=== PATIENT | female | born 1960 | race Caucasian/White ===

== ENCOUNTER 2023-06-07 09:33 | Emergency (ER) | payer OTHER, SELFPAY ==
[2023-06-07 09:42] VITALS: BP 159/89
--- NOTE | 2023-06-07 09:48 | ED.SKININJ ---
HPI-Injury
<Mickie Shaw PA-C - Last Filed: 06/07/23 10:35>
General
Chief Complaint: Bite
Source: patient
Exam Limitations: none
Time Seen by Provider: 06/07/23 09:46
Nursing documentation reviewed up to this point in time: agreed with
Travel History
Have you had any contact with someone who has COVID-19?: No
Do you have any symptoms of coronavirus? Fever > 100 degrees, chills, cough, shortness of breath, sore throat, loss of taste or smell, muscle aches, or headache?: No
History of Present Illness-Injury
Is this injury a work related problem?: No
Is pt an associate of [facility]?: No
Initial Injury comments:
63-year-old female with past medical history of diabetes, asthma presenting to the emergency department today for concerns of a dog bite to her face occurred approximately 3 minutes ago. Patient states that she has a rescue border collie who is
up-to-date on his vaccinations. Patient states that she was bending down to pet before calling when he jumped up and bit her on the side of her cheek. Patient notes burning at the site, however denies any facial pain and jaw pain. Patient has a
severe allergy to penicillins. Patient is up-to-date on her tetanus vaccination.
Past History
<Mickie Shaw PA-C - Last Filed: 06/07/23 10:35>
Past History
ED Past Medical History: Asthma, NIDDM (Insulin resistance ), Psychiatric (ADHD, anxiety ) and Other (Seasonal allergies )
ED Past Surgical History: Appendectomy, Orthopedic (Bilateral knee surgeries ) and Other (Umbilical hernia repair )
Social History
Tobacco: Non-smoker
Alcohol: None
Living: with family
Employment: Employed
Review of Systems
<Mickie Shaw PA-C - Last Filed: 06/07/23 10:35>
Review of Systems
All Other Systems: ROS reviewed and negative except as documented in HPI and ROS
Phy Exam
<Mickie Shaw PA-C - Last Filed: 06/07/23 10:35>
Physical Exam
Physical Exam:
Vitals: Vital signs are stable
General: Patient is well-appearing, no acute distress
Skin: 3 cm jagged abrasion with adjacent puncture wound on the right cheek. Wound is not actively bleeding.
Head: Normocephalic. No tenderness palpation of zygomatic bones, no tenderness palpation of temporal bones. No tenderness palpation of the maxilla and mandible. No obvious bony deformities. Full range of motion of the TMJ joint.
Cardiac: Regular rate
Pulm: Normal respiratory effort
Neuro: Patient awake and alert, moving all extremities, CN II-XII intact.
Course
<Mickie Shaw PA-C - Last Filed: 06/07/23 10:35>
Vital Signs
Initial and Last Documented VS:
Initial Vital Signs
Temp Pulse Resp BP Pulse Ox
98.1 F 103 20 159/89 98
06/07/23 09:42 06/07/23 09:42 06/07/23 09:42 06/07/23 09:42 06/07/23 09:42
Last Documented Vital Signs
Temp Pulse Resp BP Pulse Ox
98.1 F 103 20 159/89 98
06/07/23 09:42 06/07/23 09:42 06/07/23 09:42 06/07/23 09:42 06/07/23 09:42
<Maximilian Staples DO - Last Filed: 06/07/23 10:30>
Vital Signs
Initial and Last Documented VS:
Initial Vital Signs
Temp Pulse Resp BP Pulse Ox
98.1 F 103 20 159/89 98
06/07/23 09:42 06/07/23 09:42 06/07/23 09:42 06/07/23 09:42 06/07/23 09:42
Last Documented Vital Signs
Temp Pulse Resp BP Pulse Ox
98.1 F 103 20 159/89 98
06/07/23 09:42 06/07/23 09:42 06/07/23 09:42 06/07/23 09:42 06/07/23 09:42
<Mickie Shaw PA-C - Last Filed: 06/07/23 10:35>
MDM/Problems Addressed
Differential Diagnosis Includes:
laceration, abrasion, zygomatic fracture, maxillary fracture
MDM/Problems Addressed:
dog bite
severe PCN allergy
Chronic conditions affecting care: DM and Asthma
Acute Exacerbation and/or Progression of Chronic Illness: HTN and Other
<ROBSON Hirsch Last Filed: 06/07/23 10:35>
*Pulse Oximetry
Patient hypoxic: no
*Critical Care Note
Total Time (30-74mins, 75-104mins- exclusive of procedures): Not Applicable
Data Reviewed
Review of Other/Old Records Reveals: Records (reviewed ER physician documentation from 11/01/20) and Discharge Summary (reviewed discharge summary from 11/06/20)
Source: patient and records
Prescriptions/Medications Considered But Not Given:
considered medication for pain control but patient comfortable at this time
Further Testing Considered But Not Given:
considered ct of the facial bones but patient has no bony tenderness, no deformities
<ROBSON Hirsch Last Filed: 06/07/23 10:35>
Patient Management
Escalation/DeEscalation of care consider admission/obs:
63-year-old female with past medical history of diabetes, asthma presenting to the emergency department today for concerns of a dog bite to her face occurred approximately 3 minutes ago. Her dog is up to date on his vaccinations and she is up to
date on her tetanus vaccination. On exam, she has no facial bone tenderness and no obvious deformities. Sensation intact. Jagged 3 cm superficial abrasion noted to the right cheek with adjacent puncture wound. Patient has a severe penicillin allergy
so patient will be started on doxy and Flagyl prophylactically. Return precautions given.
ED Attending Note
<Mickie Shaw PA-C - Last Filed: 06/07/23 10:35>
-
Portions of this chart may have been created with voice recognition software.� Occasional wrong word or��sound alike� substitutions may have occurred due to the inherent limitations of voice recognition software.
<Maximilian Staples DO - Last Filed: 06/07/23 10:30>
ED Attending Note
Patient seen and examined by attending physician: Yes
I performed the substantive portion of visit, reviewed & personally made and approve the management plan that is documented in note by myself or TITI.: Yes
ED Attending Note:
I have seen and evaluated the patient with a [id number] encounter. I have spoken to the advance practicer provider and involved in the medical history, the physical exam, medical decision making.
Evaluation and management service: agree unless noted differently below.
Results interpretation: agree unless noted differently below.
Focused HPI: 63-year-old female presenting with a dog bite to her right cheek
Physical exam: Abrasions and exposed skin to right cheek
Medical Decision Making: Given her anaphylaxis to penicillin, will place on doxycycline and Flagyl.
Discharge Plan
Departure
Patient Disposition: Home (Routine Discharge)
Date of Disposition: 06/07/23
Time of Disposition: 10:28
Patient with high blood pressure during this ER visit?: Yes
Condition: Good
Discharge Problem:
Dog bite
Instructions: Animal Bites (DC), Wound Care (DC), BLOOD PRESSURE
Prescriptions:
New
doxycycline hyclate 100 mg tablet
100 mg PO BID 5 Days Qty: 10 0RF
metronidazole 500 mg tablet
500 mg PO TID 5 Days Qty: 15 0RF
No Action
cetirizine 10 MG tablet
10 mg PO DAILY
tizanidine 4 MG tablet
4 mg PO HS
azelastine 1 SPRAY aerosol,spray
1 spray intranasal DAILY
pregabalin 50 MG capsule
50 mg PO HS
acetaminophen 325 MG tablet
650 mg PO Q4HWA 0RF
ipratropium-albuterol 3 ML solution for nebulization
3 ml inhalation R QID Qty: 1 0RF
benzonatate 100 MG capsule
200 mg PO TID PRN (Reason: cough) Qty: 30 0RF
calcium carbonate [Antacid (calcium carbonate)] 1 TABLET tablet,chewable
2 tab PO Q4HPRN PRN (Reason: indigestion) 0RF
docusate sodium 100 MG capsule
100 mg PO BID 0RF
budesonide 0.5 MG/2 ML suspension for nebulization
0.5 mg inhalation R BID Qty: 1 0RF
fluticasone propionate 1 SPRAY spray,suspension
0 spray intranasal BID 0RF
sodium chloride [Saline Nasal] 50 SPRAYS/45 ML aerosol,spray
2 sprays intranasal QIDPRN PRN (Reason: nasal congestion) 0RF
prednisone 10 MG tablet
10 mg PO .TAPER Qty: 30 0RF
Rx Instructions:
Take 40mg daily x3days, 30mg daily x3days,
20mg daily x3days, 10mg daily x3days.
albuterol sulfate [Albuterol Sulfate HFA] 18 GM HFA aerosol inhaler
8.5 gm inhalation Q4HPRN PRN (Reason: shortness of breath) Qty: 1 0RF
Rx Instructions:
carry when traveling
azithromycin 250 MG tablet
250 mg PO DAILY Qty: 10 0RF
Referrals:
Keith Lincoln MD [Family Provider] -
Activity Restrictions/Additional Instructions:
As discussed:
- Doxycycline: please take one tablet twice daily for 5 days
- Metronidazole: please take one tablet three times daily for 5 days
Please return to the emergency department should you experience fevers or chills, purulent drainage from the wound, surrounding warmth or redness to the wound, or other concerning signs or symptoms.
Please follow up with your primary care provider.
Discharge Date and Time
Print Language: MOZAMBICAN
== END 2023-06-07 10:59 | disposition home or self-care (01) ==
LOC: EMR 09:33
PROVIDERS: EMERGENCY PHYSICIAN Student in an Organized Health Care Education/Training Program; FAMILY PHYSICIAN Family Medicine
DX: S00.81XA Abrasion of other part of head, initial encounter (principal); W54.0XXA Bitten by dog, initial encounter; E11.9 Type 2 diabetes mellitus without complications; J45.909 Unspecified asthma, uncomplicated; Z90.49 Acquired absence of other specified parts of digestive tract
CPT/HCPCS: 99282

== ENCOUNTER 2023-07-25 08:54 | Inpatient (IN) | payer OTHER, SELFPAY ==
[2023-07-23] VITALS (7 sets, daily range): BP systolic 116–136; BP diastolic 62–93; BMI 33.3; BMI 31.9
--- NOTE | 2023-07-23 09:47 | ED.GENMED ---
History of Present Illness
<Mickie Shaw PA-C - Last Filed: 07/23/23 14:39>
General
Chief Complaint: Breathing Problem
Source: patient
Exam Limitations: none
Time Seen by Provider: 07/23/23 09:42
Nursing documentation reviewed up to this point in time: agreed with
Travel History
Have you had any contact with someone who has COVID-19?: No
Do you have any symptoms of coronavirus? Fever > 100 degrees, chills, cough, shortness of breath, sore throat, loss of taste or smell, muscle aches, or headache?: No
History of Present Illness
History of Present Illness:
63-year-old female with past medical history of diabetes presenting emergency department today with cough and shortness of breath for the past 5 days. Patient states that she started to have symptoms of upper respiratory infection states that this
is a common trigger of her asthma. Patient states that she takes the Singulair inhaler daily and uses an albuterol inhaler as needed. Patient states that she has been using her albuterol inhaler multiple times this week as well as DuoNeb
treatments which have not helped her symptoms. Patient saw her primary care provider a few days ago who started her on oral prednisone, azithromycin which has not improved her symptoms. Patient denies any tongue or lip swelling, and any exposure
to allergens, any chest pain, any fevers. Patient denies any pain or swelling in her legs. Patient denies any syncopal episodes.
Past History
<Mickie Shaw PA-C - Last Filed: 07/23/23 14:39>
Past History
ED Past Medical History: Asthma, NIDDM (Insulin resistance ), Psychiatric (ADHD, anxiety ) and Other (Seasonal allergies )
ED Past Surgical History: Appendectomy, Orthopedic (Bilateral knee surgeries ) and Other (Umbilical hernia repair )
Social History
Tobacco: Non-smoker
Alcohol: None
Living: with family
Employment: Employed
Review of Systems
<Mickie Shaw PA-C - Last Filed: 07/23/23 14:39>
Review of Systems
All Other Systems: ROS reviewed and negative except as documented in HPI and ROS
Phy Exam
<ROBSON Hirsch Last Filed: 07/23/23 14:39>
Physical Exam
Physical Exam:
General: Patient is well appearing and in no acute distress; non-toxic
Skin: Warm and dry, no rashes or lesions
Head: Normocephalic, atraumatic
Eyes: Sclera non-icteric. EOMs intact.
Mouth: No intra oral lesions, dentition intact, no pharyngeal erythema
Neck: No cervical lymphadenopathy
Cardiac: Regular rate
Peripheral Vascular: No lower extremity swelling, no tenderness palpation of the lower extremities, no erythema
Pulm: Increased respiratory rate, decreased breath sounds heard bilaterally, scattered wheezes heard
Abdomen: No abdominal tenderness
Neuro: CN II-XII intact, no focal neurologic deficits.
Psychiatric: Appropriate mood and affect.
Scores
<Mickie Shaw PA-C - Last Filed: 07/23/23 14:39>
Heart Failure Risk
Heart Failure Risk Score: Not Applicable
Course
<ROBSON Hirsch Last Filed: 07/23/23 14:39>
Orders/Labs/Results
Orders:
Orders
07/23/23 09:56
Ipratropium/Albuterol Sulfate [Duoneb] 3 ml INH R NOW STA
07/23/23 09:57
CR Chest - 2 Views Urgent
Comment:
Reason For Exam: shortness of breath
07/23/23 09:58
Peak Flow Rate [RESP] Urgent
Quantity: 1
07/23/23 10:28
Complete Blood Count/With Diff Urgent
Comprehensive Metabolic Panel Urgent
07/23/23 11:02
Ipratropium/Albuterol Sulfate [Duoneb] 3 ml INH R NOW STA
07/23/23 14:03
Admit/Transfer Patient As Directed
Co-Sign Provider:
Level of Care: Observation services
Assign to:: Medical/Surgical
Physician / Group: Yue/Hospitalist
Diagnosis: Acute asthma exacerbation, UTI, bronchitis
Reason for Hospitalization: Acute asthma exacerbation, UTI, bronchitis
07/23/23 14:07
Code Status As Directed
Resuscitation Status: Full Code
07/23/23 14:21
MethylPREDNISolone PF [Solu-Medrol Pf] 60 mg IV NOW STA
07/23/23 20:00
Doxycycline [Vibramycin] 100 mg PO BID
Abnormal Lab Results
07/23/23
10:28
WBC 11.8 H 10^3/uL
(4.8-10.8)
MCH 33.1 H pg
(27.0-31.0)
RDW 11.2 L %
(11.5-14.5)
MPV 10.5 H fL
(7.4-10.4)
Abs Immat Gran (auto) 0.1 H 10^3/uL
(0-0.05)
Absolute Neuts (auto) 10.8 H 10^3/uL
(1.4-6.5)
Absolute Lymphs (auto) 0.7 L 10^3/uL
(1.2-3.4)
Neutrophils % 91.3 H %
(42.2-75.2)
Lymphocytes % 5.5 L %
(20.5-51.1)
BUN 21 H mg/dl
(7-17)
Glucose 144 H mg/dl
(70-99)
Calcium 10.5 H mg/dl
(8.4-10.2)
AST 39 H U/L
(14-36)
ALT 51 H U/L
(0-35)
07/23/23 10:28
07/23/23 10:28
Vital Signs
Initial and Last Documented VS:
Initial Vital Signs
Temp Pulse Resp BP Pulse Ox
98.3 F 97 22 130/93 98
07/23/23 09:22 07/23/23 09:22 07/23/23 09:22 07/23/23 09:22 07/23/23 09:22
Last Documented Vital Signs
Temp Pulse Resp BP Pulse Ox
98.3 F 102 13 127/62 91
07/23/23 09:22 07/23/23 11:00 07/23/23 11:00 07/23/23 11:00 07/23/23 11:00
<Eric Alfonso, - Last Filed: 07/23/23 13:05>
Orders/Labs/Results
Orders:
Orders
07/23/23 09:56
Ipratropium/Albuterol Sulfate [Duoneb] 3 ml INH R NOW STA
07/23/23 09:57
CR Chest - 2 Views Urgent
Comment:
Reason For Exam: shortness of breath
07/23/23 09:58
Peak Flow Rate [RESP] Urgent
Quantity: 1
07/23/23 10:28
Complete Blood Count/With Diff Urgent
Comprehensive Metabolic Panel Urgent
07/23/23 11:02
Ipratropium/Albuterol Sulfate [Duoneb] 3 ml INH R NOW STA
07/23/23 14:03
Admit/Transfer Patient As Directed
Co-Sign Provider:
Level of Care: Observation services
Assign to:: Medical/Surgical
Physician / Group: Yue/Hospitalist
Diagnosis: Acute asthma exacerbation, UTI, bronchitis
Reason for Hospitalization: Acute asthma exacerbation, UTI, bronchitis
07/23/23 14:07
Code Status As Directed
Resuscitation Status: Full Code
07/23/23 14:21
MethylPREDNISolone PF [Solu-Medrol Pf] 60 mg IV NOW STA
07/23/23 20:00
Doxycycline [Vibramycin] 100 mg PO BID
Abnormal Lab Results
07/23/23
10:28
WBC 11.8 H 10^3/uL
(4.8-10.8)
MCH 33.1 H pg
(27.0-31.0)
RDW 11.2 L %
(11.5-14.5)
MPV 10.5 H fL
(7.4-10.4)
Abs Immat Gran (auto) 0.1 H 10^3/uL
(0-0.05)
Absolute Neuts (auto) 10.8 H 10^3/uL
(1.4-6.5)
Absolute Lymphs (auto) 0.7 L 10^3/uL
(1.2-3.4)
Neutrophils % 91.3 H %
(42.2-75.2)
Lymphocytes % 5.5 L %
(20.5-51.1)
BUN 21 H mg/dl
(7-17)
Glucose 144 H mg/dl
(70-99)
Calcium 10.5 H mg/dl
(8.4-10.2)
AST 39 H U/L
(14-36)
ALT 51 H U/L
(0-35)
07/23/23 10:28
07/23/23 10:28
Vital Signs
Initial and Last Documented VS:
Initial Vital Signs
Temp Pulse Resp BP Pulse Ox
98.3 F 97 22 130/93 98
07/23/23 09:22 07/23/23 09:22 07/23/23 09:22 07/23/23 09:22 07/23/23 09:22
Last Documented Vital Signs
Temp Pulse Resp BP Pulse Ox
98.3 F 102 13 127/62 91
07/23/23 09:22 07/23/23 11:00 07/23/23 11:00 07/23/23 11:00 07/23/23 11:00
<Mickie Shaw PA-C - Last Filed: 07/23/23 14:39>
MDM/Problems Addressed
Differential Diagnosis Includes:
Differentials include acute asthma exacerbation, allergic rhinitis, sinusitis, pneumonia, pulmonary embolism
MDM/Problems Addressed:
Shortness of breath, cough
Chronic conditions affecting care:
Asthma
Acute Exacerbation and/or Progression of Chronic Illness:
Asthma
<ROBSON Hirsch Last Filed: 07/23/23 14:39>
*Pulse Oximetry
Patient hypoxic: no
*Critical Care Note
Total Time (30-74mins, 75-104mins- exclusive of procedures): Not Applicable
Data Reviewed
Review of Other/Old Records Reveals: Discharge Summary (Reviewed discharge summary from 11/06/2020 where patient was hospitalized for an asthma exacerbation and at that time was treated with IV steroids)
Source: patient and records
<ROBSON Hirsch Last Filed: 07/23/23 14:39>
Patient Management
Escalation/DeEscalation of care consider admission/obs:
63-year-old female with past medical history of diabetes presenting emergency department today with cough and shortness of breath for the past 5 days. Patient has a history of asthma and is currently undergoing an exacerbation of her symptoms.
Patient is failing outpatient oral prednisone, DuoNeb treatments, as well as azithromycin. Patient has a history of hospitalization for asthma, however she has never been intubated before. Patient tested negative for COVID and flu via outpatient
test. Her chest x-ray does not look like there is any evidence of an obvious pneumonia. Her CBC and CMP are unremarkable. While patient is not hypoxic, she has failed outpatient therapy and here in emergency department, her physical exam remains
unchanged after multiple nebulizer treatments. Will admit for observation and symptomatic management.
ED Attending Note
<Mickie Shaw PA-C - Last Filed: 07/23/23 14:39>
-
Portions of this chart may have been created with voice recognition software.� Occasional wrong word or��sound alike� substitutions may have occurred due to the inherent limitations of voice recognition software.
<Eric Alfonso DO - Last Filed: 07/23/23 13:05>
ED Attending Note
Patient seen and examined by attending physician: Yes
I performed the substantive portion of visit, reviewed & personally made and approve the management plan that is documented in note by myself or TITI.: Yes
ED Attending Note:
63-year-old female presents with persistent cough and difficulty breathing. Already on steroids. Patient states when she gets an upper respiratory infection bronchitis she gets reactive airway disease and asthma exacerbation. Patient admits that
she was put on azithromycin and initially a Medrol Dosepak. She states despite steroids her symptoms persist. She did take prednisone 60 mg prior to arrival today. She has been using her inhaler/albuterol at home without significant improvement.
No fever. No hemoptysis. No leg pain. No swelling. No pleuritic chest pain. Exam: Poor air movement, wheezing bilaterally. Legs unremarkable. Assessment plan: Despite outpatient maximized therapy, continues to have poor air movement and
wheezing. Heart rate 130 on my exam. Likely related to albuterol treatment. Admit. Continue steroids
Discharge Plan
Departure
Patient Disposition: Admit
Date of Disposition: 07/23/23
Time of Disposition: 12:38
Admit to: Med/Surg
Presentation/result/management discussed w/ accepting MD/DO: Hospitalist
Patient with high blood pressure during this ER visit?: Yes
Condition: Fair
Discharge Problem:
Asthma exacerbation
Prescriptions:
No Action
cetirizine 10 MG tablet
10 mg PO DAILY
pregabalin 50 MG capsule
50 mg PO HS
prednisone 10 MG tablet
10 mg PO .TAPER Qty: 30 0RF
Rx Instructions:
Take 40mg daily x3days, 30mg daily x3days,
20mg daily x3days, 10mg daily x3days.
montelukast [Singulair] 10 mg Tablet
10 mg PO HS
albuterol sulfate 2.5 mg /3 mL (0.083 %) Solution For Nebulization
2.5 mg INHALATION R Q4HPRN PRN (Reason: sob)
azithromycin [Zithromax] 250 mg Tablet
0 mg PO UD
Patient Comments:
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
Rx Instructions:
take 500gm on day one then take 250mg daily for 5 days after that
Theragen Tablet
1 tab PO DAILY
docusate sodium [Colace] 100 mg Capsule
100 mg PO BIDPRN PRN (Reason: constipation)
Refresh Optive 0.5-0.9 % Drops
1 drp RIGHT EYE QID
prednisolone acetate (PF) 1 % Drops,Suspension
1 drp RIGHT EYE QID
Breztri Aerosphere 160-9-4.8 mcg/actuation Hfa Aerosol Inhaler
2 inh INHALATION R BID
Patient Comments:
patient has free samples
benzonatate 100 MG capsule
200 mg PO TIDPRN PRN (Reason: cough)
Referrals:
Keith Lincoln MD [Family Provider] -
Interventions
Interventions:
*Risk Screen - Suicide Last Done: 07/23/23 09:22
*General Assessment Last Done: 07/23/23 09:22
*Neglect/Abuse Screening Last Done: 07/23/23 09:22
ED- Fall Risk Assessment Last Done: 07/23/23 10:18
ED- Cardiac Assessment Last Done: 07/23/23 10:18
ED- Pulmonary Assessment Last Done: 07/23/23 10:18
Discharge Date and Time
Print Language: BULGARIAN
[2023-07-23] MEDS: DUONEB 3 ML INH ×4 (10:17→23:31)
[2023-07-23 10:41] LABS: % Basophils 0.3 % (0-2); % Immature Granulocytes 0.5 % (0-0.5); % Lymphocytes 5.5 % (20.5-51.1); % Monocytes 2.4 % (1.7-9.3); % Neutrophils 91.3 % (42.2-75.2); Absolute Immature Granulocytes 0.1 10^3/uL (0-0.05); Absolute Lymphocytes 0.7 10^3/uL (1.2-3.4); Absolute Monocytes 0.3 10^3/uL (0.1-0.6); Absolute Neutrophils 10.8 10^3/uL (1.4-6.5); Hematocrit 40.7 % (37.0-47.0); Mean Corp Hgb Conc. 36.9 g/dL (33.0-37.0); Mean Corpuscular Hgb 33.1 pg (27.0-31.0); Mean Corpuscular Volume 89.8 fL (81.0-99.0); Mean Platelet Volume 10.5 fL (7.4-10.4); Nucleated Red Blood Cells % 0 %; Platelet Count 356 10^3/uL (130-400); Red Blood Cell Count 4.53 10^6/uL (4.20-5.40); Red Cell Dist. Width 11.2 % (11.5-14.5); White Blood Cell Count 11.8 10^3/uL (4.8-10.8)
[2023-07-23 11:17] LABS: ALT (SGPT) 51 U/L (0-35); AST (SGOT) 39 U/L (14-36); Albumin 4.7 g/dl (3.5-5.0); Alkaline Phosphatase 86 U/L (38-126); Blood Urea Nitrogen 21 mg/dl (7-17); Calcium 10.5 mg/dl (8.4-10.2); Carbon Dioxide 22 mmol/L (22-30); Chloride 106 mmol/L (98-107); Estimated Creatinine Clearance 74 ml/min; Glucose 144 mg/dl (70-99); Potassium 4.4 mmol/L (3.5-5.1); Sodium 140 mmol/L (135-145); Total Bilirubin 0.5 mg/dl (0.2-1.3); Total Protein 7.2 g/dl (6.3-8.2); eGFR > 60.00
--- NOTE | 2023-07-23 13:05 | HPS.HSE ---
Family Physician
-
Family Physician: Keith Lincoln
Chief Complaint
-
SOB
History of Present Illness
The patient is a 63 year-old with PMH significant for asthma and diabetes, who presents to the ED due to cough and dyspnea, worse over the past 5 days despite outpatient prednisone, Singulair, inhalers multiple doses this week including albuterol,
Duo-Nebs, and saw PCP this past week who started her on Prednisone and Z-pack with worsening symptoms. COVID x 4 this week (2x at home and 2x in PCP office negative, did not repeat in ED), and Flu negative. She was with her granddaughter last Monday
who had URI sypmtoms.
No Fever, no chills, no n/v/d, no abdominal pain, no dysuria, no CP, positive dry cough, cough with deep breathing.
ED txt: Duo-Neb therapy
Medical History
Past Medical History
Past Medical History: Reports Asthma and Other (Chronic sinusitis, septal deviation and turbinate hypertrophy. Of note patient has not been diagnosed with DM outpatient by her PCP.)
Past Surgical History: Reports Appendectomy, Orthopedic (b/l knee surgery, previous anterior discectomy and fusion in the lower cervical spine, shoulder surgery, left wrist surgery following traumatic fall) and Other (Septoplasty, sinusotomy,
ethmoidectomy, sphenoidectomy 2017, umbilical hernia repair)
Social History
Tobacco: Non-smoker
Alcohol: None
Drug: None
Personal: ( in 2021 from cancer)
Family History
Family History: Asthma
Allergies / Home Medications
Allergies reflects when Allergies were last updated in [employer].
Home Medications with original date entered in [employer]
Allergy/Medication List:
Allergies
Allergy/AdvReac Type Severity Reaction Status Date / Time
amoxicillin Allergy Anaphylaxis Verified 07/23/23 09:26
aspirin Allergy Anaphylaxis Verified 07/23/23 09:26
cefuroxime Allergy Pharmacy Verified 07/23/23 09:
to Review
Cephalosporins Allergy Pharmacy Verified 07/23/23 09:
to Review
codeine Allergy Anaphylaxis Verified 07/23/23 09:
indomethacin Allergy Anaphylaxis Verified 07/23/23:
NSAIDS (Non-Steroidal Allergy Pharmacy Verified 07/23/23 09:
Anti-Inflamma to Review
Penicillins Allergy Anaphylaxis Verified 07/23/23 09:
procaine [From Novocain] Allergy Unknown Verified 07/23/23 09:
Salicylates * Allergy Anaphylaxis Verified 07/23/23 09:
tramadol Allergy Tongue Verified 07/23/23:
Swelling
NOT.[id number] - Not Allergy Pharmacy Uncoded 07/23/23 09:
Converted 38. See Text. to Review
NOT.[id number] - Not Allergy Pharmacy Uncoded 07/23/23:
Converted 65. See Text. to Review
Home Medications
cetirizine 10 mg tablet 10 mg PO DAILY Allergies 11/01/20
pregabalin 50 mg capsule 50 mg PO HS Mental Health/Anxiety 11/01/20
prednisone 10 mg tablet 10 mg PO .TAPER #30 tabs 11/06/20
albuterol prn
Review of Systems
-
A 12 point ROS was completed and negative except as noted: Yes
Physical Exam
Vital Signs
Vital Signs
Temp Pulse Resp BP Pulse Ox
98.3 F 102 13 127/62 91
07/23/23 09:22 07/23/23 11:00 07/23/23 11:00 07/23/23 11:00 07/23/23 11:00
Physical Exam
General: Well Developed, Well Nourished, Comfortable and Conversant
HEENT: NormoCephalic, Anicteric and Moist mucous membranes
Respiratory: Wheezes (end expiratory right greater than left, cough with deep inspiration)
Cardiac: S1/S2 and Tachycardia
GI: Soft, Non Tender, Non Distended and Normal Bowel Sounds
Musculoskeletal: No Clubbing, No Cyanosis and No Edema
Skin: Warm and Dry
Neuro: AO x 3, No Motor Deficits and Nonfocal/grossly intact
Psych: Calm
Laboratory Results
-
07/23/23 10:28
07/23/23 10:28
Laboratory Results
Total Bilirubin 0.5 mg/dl (0.2-1.3) 07/23/23 10:28
AST 39 U/L (14-36) H 07/23/23 10:28
ALT 51 U/L (0-35) H 07/23/23 10:28
Alkaline Phosphatase 86 U/L (38-126) 07/23/23 10:28
Data Reviewed
-
Diagnostic Radiology: Image Personally Visualized and interpreted and Report Reviewed by me ( 1. Mild amount of subpleural scarring and subsegmental atelectasis in the lower lobes. 2. Mild elevation of the right hemidiaphragm. )
Impression/Plan
-
IMPRESSION:
#Acute asthma exacerbation with acute respiratory insufficiency, likely asthmatic bronchitis, URI
-COVID negative OP x 4 this week, Influenze negative OP in PCP office Monday
-cough paroxysms
-failed outpatient therapy associated with likely URI and bronchitis
-CXR Mild amount of subpleural scarring and subsegmental atelectasis in the lower lobes. No pneumonia
-Failed outpatient response to steroids nebulizers and antibiotic
- IV steroids Solu-Medrol x 60 dose now, then continue TID Dexamethasone 4 mg IV for now, pending clinical course
- Start oral Doxy, antitussives can only be Tessalon Perles as allergic to others
- nebulizer therapy Duo-Nebs scheduled and prn,
- oxygen if needed, monitor pulse oximetry
-consider Pulm consult pending clinical response today
#History of allergic rhinitis
-continue Zyrtec and Singulair
#Documentation of diabetes in the system however patient has never been diagnosed with diabetes by her PCP.
-Last HgA1C here is 5.9 in 2020
-given use of steroids, monitor glucose with daily labs first, and if elevated then can start SSI based on steroids use;
-no prior diagnosis of DM per patient-she can address with PCP with outpatient HgA1C if she hasn't already
#History of cervical spinal surgery
-Continue Lyrica
Full CODE STATUS
Lovenox DVT prophylaxis
[2023-07-23] MEDS: SOLU-MEDROL PF 60 MG IV (14:35)
[2023-07-23] MEDS: TESSALON PERLES 100 MG PO ×2 (16:39→21:29)
[2023-07-23] MEDS: DUONEB INH (17:12)
[2023-07-23] MEDS: LOVENOX 40 MG SC (17:30)
[2023-07-23] MEDS: VIBRAMYCIN 100 MG PO (20:40)
[2023-07-23] MEDS: LYRICA 50 MG PO (21:24)
[2023-07-23] MEDS: MIRALAX 17 GRAMS PO (21:24)
[2023-07-23] MEDS: SINGULAIR 10 MG PO (21:24)
[2023-07-23] MEDS: DECADRON 6 MG IV (21:25)
[2023-07-24] MEDS: ROBITUSSIN DM 5 ML PO ×3 (02:58→17:18)
[2023-07-24] MEDS: DUONEB 3 ML INH ×3 (03:34→11:10)
[2023-07-24] MEDS: DECADRON 6 MG IV ×2 (05:16→13:47)
[2023-07-24 05:40] LABS: % Basophils 0.2 % (0-2); % Immature Granulocytes 0.7 % (0-0.5); % Lymphocytes 9.7 % (20.5-51.1); % Monocytes 5.1 % (1.7-9.3); % Neutrophils 84.3 % (42.2-75.2); Absolute Immature Granulocytes 0.1 10^3/uL (0-0.05); Absolute Lymphocytes 1.1 10^3/uL (1.2-3.4); Absolute Monocytes 0.6 10^3/uL (0.1-0.6); Absolute Neutrophils 9.3 10^3/uL (1.4-6.5); Hematocrit 41.3 % (37.0-47.0); Hemoglobin 14.2 g/dL (12.0-16.0); Mean Corp Hgb Conc. 34.4 g/dL (33.0-37.0); Mean Corpuscular Hgb 32.3 pg (27.0-31.0); Mean Corpuscular Volume 94.1 fL (81.0-99.0); Mean Platelet Volume 10.5 fL (7.4-10.4); Nucleated Red Blood Cells % 0 %; Platelet Count 330 10^3/uL (130-400); Red Blood Cell Count 4.39 10^6/uL (4.20-5.40); Red Cell Dist. Width 11.2 % (11.5-14.5)
[2023-07-24 06:03] LABS: Blood Urea Nitrogen 20 mg/dl (7-17); Calcium 10.5 mg/dl (8.4-10.2); Carbon Dioxide 21 mmol/L (22-30); Chloride 104 mmol/L (98-107); Estimated Creatinine Clearance 96 ml/min; Glucose 162 mg/dl (70-99); Potassium 4.4 mmol/L (3.5-5.1); Sodium 138 mmol/L (135-145); eGFR > 60.00
[2023-07-24 07:20] VITALS: BP 126/78
[2023-07-24] MEDS: MIRALAX 17 GRAMS PO (07:52)
[2023-07-24] MEDS: TESSALON PERLES 100 MG PO ×2 (07:54→17:18)
[2023-07-24] MEDS: ZYRTEC 10 MG PO (07:54)
[2023-07-24] MEDS: VIBRAMYCIN 100 MG PO ×2 (07:54→20:43)
[2023-07-24] MEDS: TYLENOL 1000 MG PO (10:44)
[2023-07-24] MEDS: VENTOLIN NEBULES INH (12:05)
[2023-07-24] MEDS: REFRESH EYE DROPS (PF) 1 DROPS RIGHT EYE ×3 (13:47→21:25)
[2023-07-24] MEDS: PRED FORTE 1% EYE DROPS 1 DROP RIGHT EYE ×3 (13:47→21:25)
--- NOTE | 2023-07-24 14:08 | W.PN.HOSP.TC ---
Today's Communication/Plan
-
Decree steroids from 6 mg every 6 to 4 mg every 6
Continue nebulizer treatments
Continue doxycycline
Sputum culture if possible
Hemoglobin A1c
Pulm eval
Assessment / Plan
Assessment / Plan
63-year-old female with cough and dyspnea started 6 days ago. Despite treatment with inhalers, inhaled steroids, Z-Ld and steroid taper patient did not get better. She stated her her granddaughter was sick with URI symptoms.
On examination awake alert able to speak in sentences
Cardiovascular system S1-S2 appreciated
Chest bilateral wheezes noted
Abdomen soft and nontender
No lower extremity edema
# Acute asthma exacerbation with URI and acute bronchitis likely asthmatic bronchitis
COVID-19 testing negative and influenza negative as outpatient
Failed outpatient treatment
Chest x-ray atelectasis
Continue IV steroids, doxycycline, Tessalon
As needed oxygen
Pulmonary consultation patient is known to Dr. Whyte
# Slightly elevated AST and ALT-follow
Likely from hepatic steatosis from a previous ultrasound 2014
# Mild hypercalcemia-check intact PTH
# History of allergic rhinitis-continue Zyrtec and Singulair
# Hemoglobin A1c 5.9
With steroids sugars may rise. Monitor
Repeat hemoglobin A1c
# History of cervical spine surgery-continue Lyrica
# Obesity per BMI criteria
# Full code
# DVT prophylaxis-Lovenox
Anticipated Discharge: 24 - 48 hours
Subjective/Interval History
-
Date of Service: July 24, 2023
Objective Data
-
Labs:
Laboratory Results
07/24/23
05:01
WBC 11.0 H
Hgb 14.2
Hct 41.3
Plt Count 330
Sodium 138
Potassium 4.4
Chloride 104
Carbon Dioxide 21 L
BUN 20 H
Creatinine 0.6
Glucose 162 H
Calcium 10.5 H
Vital Signs:
Vital Signs
Temp Pulse Resp BP Pulse Ox
97.6 F 110 16 126/78 95
07/24/23 07:20 07/24/23 11:14 07/24/23 11:14 07/24/23 07:20 07/24/23 11:14
I&O
07/23/23 07/24/23 07/25/23
06:59 06:59 06:59
Intake Total 2880 / 2880
Balance 2880 / 2880
--- NOTE | 2023-07-24 14:25 | CON.PUL ---
Consultation
Consultation Request
Date/Time Consultation Requested: 07/24/2023 - 140
Date/Time Consultation Performed: 07/24/2023 - 141
Requesting Provider: Dr. Myles
Performing Provider: Data
Reason for Consultation: Asthma exacerbation
Medical History
-
Chief Complaint: Cough + SOB
History of Present Illness:
63-year-old female non-smoker with a past medical history of asthma, depression and ADD who presents with cough + SOB starting last Monday (07/19/2023). The patient had seen her PCP (Dr. Woo) recently on 07/20 with cough and congestion despite
being treated with a Medrol Dosepak 2 days prior for suspected viral URI. Pt was not getting relief despite using nebulized albuterol - patient was diagnosed with acute sinusitis and was told to stop the Medrol, and a prednisone taper was given
starting at 60 mg X 2 days, dropping down to 40 mg for another 3 days, etc., and Breztri samples were given to the patient as well as Tessalon Perles + a Z-pack. In the ER she was afebrile to 98.3 �F, pulse rate 97, breathing at 22 breaths/min, BP
130/93 and saturating 90% on room air. Labs showed leukocytosis to 11.8, slightly elevated LFTs with AST 39, ALT 51, and CXR showed no pneumonia or heart failure (mildly elevated right hemidiaphragm with mild subpleural scarring and subsegmental
atelectasis in the lower lobes). Patient given DuoNebs in the ER and Solu-Medrol and admitted to the hospitalist service. Inhalers were continued as well as systemic steroids, and doxycycline. Pulmonary service now consulted for additional
recommendations.
When I saw the patient she was walking around her room in no acute distress on room air. She says that she actually is starting to feel better. She believes that she got sick from her granddaughter who is 9 months old who was sick prior to the
patient getting any symptoms. The patient says she started feeling her chest rattling last Monday and then her symptoms started shortly after that. Patient says she has an allergy to codeine so she cannot take any codeine cough syrup. The
Rekha RIVERA seems to be helping her though. She says that at home for her asthma, she takes albuterol MDI 1�2x a day and nebulized albuterol as needed. She currently denies any chest pain, headache, abdominal pain, fevers or chills, her main
complaint, though, is that when she has a coughing spell, it is very hard for her to stop it which leads to shortness of breath and chest/throat tightness.
Patient is known to our office with last visit on 09/29/2021 with MARY Taylor and Dr. Whyte. Patient has known asthma and was on Singulair at the time with nebulized budesonide. She seems to have respiratory symptoms in the spring. She
also had COVID-19 in September 2021. FeNO at that time was elevated at 41. Last spirometry done in September 2021 which was normal.
PMHx: ADD, asthma, depression, glaucoma, palpitations
PSHx: Bilateral knee surgery, appendectomy, umbilical hernia repair, breast reduction, herniated disc repair, right rotator cuff repair, left hand/arm surgery
Past Medical History
Past Medical History: Other (Above as per HPI)
Past Surgical History: Other (Above as per HPI)
Social History
Tobacco: Non-smoker
Alcohol: None
Drug: None
Personal: ( passed in 2021 from cancer)
Family History
Family History: Asthma (Sister + all of patient's children), Cancer (Breast cancer: Mother + maternal cousin) and Hypertension (Father)
Allergies / Home Medications
Allergies
Allergy/AdvReac Type Severity Reaction Status Date / Time
amoxicillin Allergy Anaphylaxis Verified 07/23/23 09:26
aspirin Allergy Anaphylaxis Verified 07/23/23 09:26
cefuroxime Allergy Pharmacy Verified 07/23/23 09:26
to Review
Cephalosporins Allergy Pharmacy Verified 07/23/23 09:26
to Review
codeine Allergy Anaphylaxis Verified 07/23/23 09:26
indomethacin Allergy Anaphylaxis Verified 07/23/23 09:26
NSAIDS (Non-Steroidal Allergy Pharmacy Verified 07/23/23 09:26
Anti-Inflamma to Review
Penicillins Allergy Anaphylaxis Verified 07/23/23 09:26
procaine [From Novocain] Allergy Unknown Verified 07/23/23 09:26
Salicylates * Allergy Anaphylaxis Verified 07/23/23 09:26
tramadol Allergy Tongue Verified 07/23/23 09:26
Swelling
NOT.[id number] - Not Allergy Pharmacy Uncoded 07/23/23 09:26
Converted 38. See Text. to Review
NOT.[id number] - Not Allergy Pharmacy Uncoded 07/23/23 09:26
Converted 65. See Text. to Review
Home Medications
�Medication �Instructions �Recorded �Confirmed �Last Taken �Type
cetirizine 10 mg tablet 10 mg PO DAILY Allergies 11/01/20 07/23/23 07/22/23 History
pregabalin 50 mg capsule 50 mg PO HS Mental Health/Anxiety 11/01/20 07/23/23 07/22/23 History
albuterol sulfate 2.5 mg/3 mL 2.5 mg inhalation R Q4HPRN PRN sob 07/23/23 07/23/23 07/23/23 History
(0.083 %) solution for nebulization
azithromycin 250 mg tablet 0 mg PO UD Infection 07/23/23 07/23/23 07/23/23 History
(Zithromax)
benzonatate 100 mg capsule 200 mg PO TIDPRN PRN cough 07/23/23 07/23/23 07/23/23 History
budesonide 160 mcg-glycopyr 9 2 inh inhalation R BID 07/23/23 07/23/23 07/23/23 History
mcg-formot 4.8 mcg/actuation HFA
inhaler (Breztri Aerosphere)
carboxymethylcellulose 0.5 1 drp RIGHT EYE QID DRY EYES 07/23/23 07/23/23 07/23/23 History
%-glycerin 0.9 % eye drops
(Refresh Optive)
docusate sodium 100 mg capsule 100 mg PO BIDPRN PRN constipation 07/23/23 07/23/23 07/22/23 History
(Colace)
montelukast 10 mg tablet 10 mg PO HS ASTHMA 07/23/23 07/23/23 07/22/23 History
(Singulair)
prednisolone acetate (PF) 1 % eye 1 drp RIGHT EYE QID 07/23/23 07/23/23 07/23/23 History
drops,suspension Anti-Inflammatory
therapeutic multivitamin 1 tab PO DAILY Supplement 07/23/23 07/23/23 Unknown History
prednisone 10 mg tablet 10 mg PO .TAPER Anti-Inflammatory 07/24/23 07/23/23 07/23/23 History
Review of Systems
-
History Source: Patient
All other systems: Negative unless noted (12 point ROS performed and is negative unless mentioned above.)
Vitals / Labs / Diagnostic Testing
Vital Signs
Temp Pulse Resp BP Pulse Ox
97.6 F 110 16 126/78 95
07/24/23 07:20 07/24/23 11:14 07/24/23 11:14 07/24/23 07:20 07/24/23 11:14
Lab Data
07/24/23 05:01
07/24/23 05:01
Diagnostic Testing:
Physical Exam
-
HEENT: Normocephalic and Anicteric
Cardiovascular: S1/S2 and Peripheral Edema (negative)
Respiratory: Wheeze (Catahoula in the posterior lung jackson just prior to patient coughing), Rales (Catahoula bilaterally), Rhonchi (negative) and Non-Labored Respirations
GI: Soft, Non Distended, Non Tender and Normal Bowel Sounds
Neurology: AO x 3 and Tremors (negative)
Skin: Warm and Dry
General: Respiratory Distress (n), Comfortable and Chills (n)
Assessment
-
Assessment: 63-year-old female non-smoker with a past medical history of asthma, depression and ADD who presents with cough + SOB starting last Monday (07/19/2023). The patient had seen her PCP (Dr. Woo) recently on 07/20 with cough and
congestion despite being treated with a Medrol Dosepak 2 days prior for suspected viral URI. Pt was not getting relief despite using nebulized albuterol - patient was diagnosed with acute sinusitis and was told to stop the Medrol, and a prednisone
taper was given starting at 60 mg X 2 days, dropping down to 40 mg for another 3 days, etc., and Breztri samples were given to the patient as well as Rogerio Worley + a Z-pack. In the ER she was afebrile to 98.3 �F, pulse rate 97, breathing at 22
breaths/min, BP 130/93 and saturating 90% on room air. Labs showed leukocytosis to 11.8, slightly elevated LFTs with AST 39, ALT 51, and CXR showed no pneumonia or heart failure (mildly elevated right hemidiaphragm with mild subpleural scarring
and subsegmental atelectasis in the lower lobes). Patient given DuoNebs in the ER and Solu-Medrol and admitted to the hospitalist service. Inhalers were continued as well as systemic steroids, and doxycycline. Pulmonary service now consulted for
additional recommendations.
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
Impression:
#Acute asthmatic exacerbation likely due to viral URI
#Mild persistent asthma with moderate-severe exacerbation with coughing paroxysms (at homes takes albuterol MDI 1-2x daily; the Breztri was only a sample her PCP started on her last week)
#Slightly elevated LFTs
#History of ADD
#Depression
#Hx of COVID-19 (September 2021)
Plan:
- Continue systemic steroids and wean as tolerated � currently on Decadron 4 mg IV q8hr
- Continue with inhalers with Symbicort 160mcg and Spiriva Respimat 2.5mcg with as needed albuterol q4hr
- Continue Doxycycline but with suspected viral URI I would give short course (3-5 days max)
- Maintain SpO2 >90-94% with supplemental O2 as needed
- Incentive spirometer encouraged
- Tessalon orquideaes standing
- Can give a one time dose of magnesium 2g if her SOB does not improve
- Replete electrolytes with K>4, Mg>2
- Maintain euglycemia with goal BG >100 and <180
- DVT ppx
Pulmonary service will continue to follow along.
Total time spent today was 55 minutes for this encounter. Time includes reviewing laboratory test/imaging results, reviewing pertinent medical records, obtaining and reviewing medical history, performing an appropriate exam, ordering medications,
tests and procedures. Time also includes documentation of this encounter, coordinating patient care and communicating with other healthcare professionals. Total time does not include separately billed tests performed on this date of service.
Data:
CXR 07-23-2023:
1. Mild amount of subpleural scarring and subsegmental atelectasis in the lower lobes.
2. Mild elevation of the right hemidiaphragm.
[2023-07-24 15:06] LABS: ALT (SGPT) 41 U/L (0-35); AST (SGOT) 35 U/L (14-36); Albumin 4.5 g/dl (3.5-5.0); Alkaline Phosphatase 82 U/L (38-126); Direct Bilirubin 0.4 mg/dl (0.0-0.4); Total Bilirubin 0.5 mg/dl (0.2-1.3)
[2023-07-24] MEDS: VENTOLIN NEBULES 2.5 MG INH ×2 (15:25→21:00)
[2023-07-24 15:34] VITALS: BP 137/77
--- NOTE | 2023-07-24 16:05 | CM ---
Patient seen bedside, initial assessment completed. Patient resides independently, reports her son lives in the other half of her home. Patient reports the home is a multiple story home, 8 steps to enter. Patient denies DME, VN, or SNF history.
Patient confirms PCP Keith Lincoln, pharmacy [facility], confirms prescription coverage. Patient denies food insecurities. OBS status reviewed, refused to sign, placed in patients chart. Patient upset about being OBS status, TT sent to [facility] CM. CM
will continue to follow for discharge planning needs.
Plan; home no needs anticipated.
[2023-07-24] MEDS: LOVENOX 40 MG SC (17:19)
[2023-07-24] MEDS: SYMBICORT 160/4.5 MCG INHALER 2 PUFF INH (21:01)
[2023-07-24] MEDS: TESSALON PERLES 200 MG PO (21:23)
[2023-07-24] MEDS: LYRICA 50 MG PO (21:24)
[2023-07-24] MEDS: DECADRON 4 MG IV (21:25)
[2023-07-24] MEDS: SINGULAIR 10 MG PO (21:25)
[2023-07-24 23:00] VITALS: BP 116/78
[2023-07-25] MEDS: DECADRON 4 MG IV ×2 (05:25→13:21)
[2023-07-25 07:12] LABS: ALT (SGPT) 45 U/L (0-35); AST (SGOT) 31 U/L (14-36); Albumin 4.6 g/dl (3.5-5.0); Alkaline Phosphatase 75 U/L (38-126); Blood Urea Nitrogen 23 mg/dl (7-17); Calcium 10.4 mg/dl (8.4-10.2); Carbon Dioxide 22 mmol/L (22-30); Chloride 105 mmol/L (98-107); Estimated Creatinine Clearance 82 ml/min; Glucose 116 mg/dl (70-99); Potassium 4.8 mmol/L (3.5-5.1); Sodium 137 mmol/L (135-145); Total Bilirubin 0.3 mg/dl (0.2-1.3); Total Protein 7.1 g/dl (6.3-8.2); eGFR > 60.00
[2023-07-25] MEDS: VENTOLIN NEBULES 2.5 MG INH ×4 (07:29→19:51)
[2023-07-25] MEDS: SYMBICORT 160/4.5 MCG INHALER 2 PUFF INH ×2 (07:29→19:51)
[2023-07-25] MEDS: SPIRIVA RESPIMAT 2.5 MCG 2 PUFF INH (07:29)
[2023-07-25 08:01] VITALS: BP 142/80
[2023-07-25] MEDS: MIRALAX 17 GRAMS PO (09:02)
[2023-07-25] MEDS: TESSALON PERLES 200 MG PO ×3 (09:03→21:54)
[2023-07-25] MEDS: REFRESH EYE DROPS (PF) 1 DROPS RIGHT EYE ×4 (09:03→21:54)
[2023-07-25] MEDS: VIBRAMYCIN 100 MG PO ×2 (09:03→20:24)
[2023-07-25] MEDS: PRED FORTE 1% EYE DROPS 1 DROP RIGHT EYE ×4 (09:03→21:54)
[2023-07-25] MEDS: THERAGRAN 1 TABLET PO (09:03)
[2023-07-25] MEDS: ZYRTEC 10 MG PO (09:04)
--- NOTE | 2023-07-25 12:12 | W.PN.PUL3 ---
Today's Communication / Plan
-
Continue systemic steroids
If by tomorrow she is improved and feels ready to go home, can start prednisone taper beginning at 50 mg and reduce by 10 mg every fourth day until off
Start nasal Noble mist due to acute rhinitis symptoms with nasal congestion and green discharge
Up OOB as tolerated
Encourage incentive spirometer use
Assessment
-
Assessment: 63-year-old female non-smoker with a past medical history of asthma, depression and ADD who presents with cough + SOB starting last Monday (07/19/2023). The patient had seen her PCP (Dr. Woo) recently on 07/20 with cough and
congestion despite being treated with a Medrol Dosepak 2 days prior for suspected viral URI. Pt was not getting relief despite using nebulized albuterol - patient was diagnosed with acute sinusitis and was told to stop the Medrol, and a prednisone
taper was given starting at 60 mg X 2 days, dropping down to 40 mg for another 3 days, etc., and Breztri samples were given to the patient as well as [employer] + a Z-pack. In the ER she was afebrile to 98.3 �F, pulse rate 97, breathing at 22
breaths/min, BP 130/93 and saturating 90% on room air. Labs showed leukocytosis to 11.8, slightly elevated LFTs with AST 39, ALT 51, and CXR showed no pneumonia or heart failure (mildly elevated right hemidiaphragm with mild subpleural scarring
and subsegmental atelectasis in the lower lobes). Patient given DuoNebs in the ER and Solu-Medrol and admitted to the hospitalist service. Inhalers were continued as well as systemic steroids, and doxycycline. Pulmonary service now consulted for
additional recommendations.
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
Impression:
#Acute asthmatic exacerbation likely due to viral URI
#Mild persistent asthma with moderate-severe exacerbation with coughing paroxysms (at homes takes albuterol MDI 1-2x daily; the Breztri was only a sample her PCP started on her last week)
#Slightly elevated LFTs
#History of ADD
#Depression
#Hx of COVID-19 (September 2021)
Plan:
- Continue systemic steroids and wean as tolerated � currently on Decadron 2 mg IV q8hr (equivalent to prednisone 40mg) weaned from 4mg IV q8hr --> depending on her symptoms tomorrow, may be able to start prednisone taper
- Continue with inhalers with Symbicort 160mcg and Spiriva Respimat 2.5mcg with nebulized albuteo QID and q4hr prn albuterol
- Continue Doxycycline but with suspected viral URI I would give short course (3-5 days max)
- Maintain SpO2 >90-94% with supplemental O2 as needed
- Incentive spirometer encouraged
- Scheduled Tessalon Perles
- Can give a one time dose of magnesium 2g if her SOB does not improve
- Given she has nasal discharge, I will start nasal ocean mist
- Replete electrolytes with K>4, Mg>2
- Maintain euglycemia with goal BG >100 and <180
- DVT ppx
Pulmonary service will continue to follow along.
Total time spent today was 35 minutes for this encounter. Time includes reviewing laboratory test/imaging results, reviewing pertinent medical records, obtaining and reviewing medical history, performing an appropriate exam, ordering medications,
tests and procedures. Time also includes documentation of this encounter, coordinating patient care and communicating with other healthcare professionals. Total time does not include separately billed tests performed on this date of service.
Data:
CXR 07-23-2023:
1. Mild amount of subpleural scarring and subsegmental atelectasis in the lower lobes.
2. Mild elevation of the right hemidiaphragm.
Subjective Data
-
Date of Service:
Date of Service: July 25, 2023
Chief Complaint: Pulmonary Follow Up
Subjective:
Patient seen and evaluated today at bedside. She is starting to feel better. She says she had a difficult night last night due to SOB because she did not know she could ask for a nebulizer treatment. Her coughing spells have improved. She is try
to get nasal congestion now with green nasal discharge. She denies chest pain, headache, fevers or chills.
Review of Systems
General: Other (Negative unless mentioned above)
Objective Data
Data Reviewed
Vital Signs / I&O / Oxygen:
Vital Signs
Temp Pulse Resp BP Pulse Ox
97.7 F 110 16 142/80 97
07/25/23 08:01 07/25/23 11:46 07/25/23 11:46 07/25/23 08:01 07/25/23 11:46
Intake and Output
07/24/23 07/25/23 07/26/23
06:59 06:59 06:59
Intake Total 2880 / 2880 1801 / 1801
Balance 2880 / 2880 1801 / 1801
SaO2 97
Nasal Cannula flow liters per 2
minute
Physical Exam
General: Respiratory Distress (Negative), Comfortable and Chills (Negative)
HEENT: Normocephalic and Anicteric
Cardiovascular: S1-S2
Respiratory: Wheeze (Harris upon expiration just prior to her coughing), Rhonchi (Negative), Non-Labored Respirations and Other (Coarse breath sounds heard bilaterally)
GI: Soft, Non Distended, Non Tender and Normal Bowel Sounds
Neurology: AO x 3 and Tremors (Negative)
Skin: Warm and Dry
Labs/Micro/Reports
Lab Data
07/24/23 05:01
07/25/23 05:39
Microbiology
07/24/23 23:19 Sputum Respiratory Culture - Final
07/24/23 23:19 Sputum Gram Stain - Final
--- NOTE | 2023-07-25 15:01 | CM ---
Patient seen bedside.
Patient has home nebulizer, not on home oxygen.
Plan: home no needs
--- NOTE | 2023-07-25 15:30 | W.PN.HOSP.TC ---
Today's Communication/Plan
-
taper steroids
continue nebs and AB
? Discharge in 24 hours if better?
Assessment / Plan
Assessment / Plan
63-year-old female with cough and dyspnea started 6 days ago. Despite treatment with inhalers, inhaled steroids, Z-Dl and steroid taper patient did not get better. She stated her her granddaughter was sick with URI symptoms.
On examination awake alert able to speak in sentences
Cardiovascular system S1-S2 appreciated
Chest fait wheezes on the right noted
Abdomen soft and nontender
No lower extremity edema
# Acute asthma exacerbation with URI and acute bronchitis likely asthmatic bronchitis
COVID-19 testing negative and influenza negative as outpatient
Failed outpatient treatment
Chest x-ray atelectasis
Continue IV steroids, doxycycline, Tessalon
As needed oxygen
Pulmonary consultation appreciated -patient is known to Dr. Whyte
# Slightly elevated AST and ALT-follow
Likely from hepatic steatosis from a previous ultrasound 2014
# Mild hypercalcemia-check intact PTH
# History of allergic rhinitis-continue Zyrtec and Singulair
# Hemoglobin A1c 6.0
With steroids sugars may rise. Monitor
# History of cervical spine surgery-continue Lyrica
# Obesity per BMI criteria
# Full code
# DVT prophylaxis-Lovenox
Anticipated Discharge: Within 24 hours
Subjective/Interval History
-
Date of Service: July 25, 2023
Objective Data
-
Labs:
Laboratory Results
07/25/23
05:39
Sodium 137
Potassium 4.8
Chloride 105
Carbon Dioxide 22
BUN 23 H
Creatinine 0.7
Glucose 116 H
Calcium 10.4 H
Total Bilirubin 0.3
AST 31
ALT 45 H
Alkaline Phosphatase 75
Vital Signs:
Vital Signs
Temp Pulse Resp BP Pulse Ox
97.7 F 110 16 142/80 95
07/25/23 08:01 07/25/23 11:46 07/25/23 11:46 07/25/23 08:01 07/25/23 13:38
I&O
07/24/23 07/25/23 07/26/23
06:59 06:59 06:59
Intake Total 2880 / 2880 1801 / 1801
Balance 2880 / 2880 1801 / 1801
[2023-07-25 16:02] VITALS: BP 122/95
[2023-07-25] MEDS: LOVENOX SC (17:31)
[2023-07-25] MEDS: LYRICA 50 MG PO (21:53)
[2023-07-25] MEDS: ROBITUSSIN DM 5 ML PO (21:53)
[2023-07-25] MEDS: OCEAN, SALINE MIST 2 SPRAYS NASAL (21:53)
[2023-07-25] MEDS: DECADRON 2 MG IV (21:53)
[2023-07-25] MEDS: SINGULAIR 10 MG PO (21:54)
[2023-07-25 23:10] VITALS: BP 132/76
[2023-07-26] MEDS: VENTOLIN NEBULES 2.5 MG INH ×5 (01:52→19:25)
[2023-07-26] MEDS: ROBITUSSIN DM 5 ML PO ×3 (05:49→19:54)
[2023-07-26] MEDS: DECADRON 2 MG IV ×3 (05:49→19:54)
[2023-07-26 07:25] VITALS: BP 139/80
[2023-07-26] MEDS: SPIRIVA RESPIMAT 2.5 MCG 2 PUFF INH (08:23)
[2023-07-26] MEDS: SYMBICORT 160/4.5 MCG INHALER 2 PUFF INH ×2 (08:23→19:25)
[2023-07-26] MEDS: MIRALAX 17 GRAMS PO (08:43)
[2023-07-26] MEDS: OCEAN, SALINE MIST 2 SPRAYS NASAL ×3 (08:43→21:34)
[2023-07-26] MEDS: REFRESH EYE DROPS (PF) 1 DROPS RIGHT EYE ×4 (08:44→21:33)
[2023-07-26] MEDS: PRED FORTE 1% EYE DROPS 1 DROP RIGHT EYE ×4 (08:44→21:34)
[2023-07-26] MEDS: THERAGRAN 1 TABLET PO (08:44)
[2023-07-26] MEDS: VIBRAMYCIN 100 MG PO ×2 (08:45→19:54)
[2023-07-26] MEDS: ZYRTEC 10 MG PO (08:45)
[2023-07-26] MEDS: TESSALON PERLES 200 MG PO ×3 (08:57→21:33)
--- NOTE | 2023-07-26 11:29 | W.PN.PUL3 ---
Today's Communication / Plan
-
Continue systemic steroids
Tomorrow start prednisone taper beginning at 50 mg and reduce by 10 mg every fourth day until off
Continue nasal [place] mist due to acute rhinitis symptoms with nasal congestion and green discharge
Up OOB as tolerated
Encourage incentive spirometer use
Assessment
-
Assessment: 63-year-old female non-smoker with a past medical history of asthma, depression and ADD who presents with cough + SOB starting last Monday (07/19/2023). The patient had seen her PCP (Dr. Woo) recently on 07/20 with cough and
congestion despite being treated with a Medrol Dosepak 2 days prior for suspected viral URI. Pt was not getting relief despite using nebulized albuterol - patient was diagnosed with acute sinusitis and was told to stop the Medrol, and a prednisone
taper was given starting at 60 mg X 2 days, dropping down to 40 mg for another 3 days, etc., and Breztri samples were given to the patient as well as TesPneumRx + a Z-pack. In the ER she was afebrile to 98.3 �F, pulse rate 97, breathing at 22
breaths/min, BP 130/93 and saturating 90% on room air. Labs showed leukocytosis to 11.8, slightly elevated LFTs with AST 39, ALT 51, and CXR showed no pneumonia or heart failure (mildly elevated right hemidiaphragm with mild subpleural scarring
and subsegmental atelectasis in the lower lobes). Patient given DuoNebs in the ER and Solu-Medrol and admitted to the hospitalist service. Inhalers were continued as well as systemic steroids, and doxycycline. Pulmonary service now consulted for
additional recommendations.
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
Impression:
#Acute asthmatic exacerbation likely due to viral URI
#Mild persistent asthma with moderate-severe exacerbation with coughing paroxysms (at homes takes albuterol MDI 1-2x daily; the Breztri was only a sample her PCP started on her last week)
#Slightly elevated LFTs
#Hypercalcemia - improved and iPTH is normal
#History of ADD
#Depression
#Hx of COVID-19 (September 2021)
Plan:
- Continue systemic steroids and wean as tolerated � currently on Decadron 2 mg IV q8hr (equivalent to prednisone 40mg) weaned from 4mg IV q8hr --> transition to Prednisone taper starting tomorrow (begin at 50mg and reduce by 10mg every 4th day
until off)
- Continue with inhalers with Symbicort 160mcg and Spiriva Respimat 2.5mcg with nebulized albuterol QID and q4hr prn albuterol
- Continue Doxycycline but with suspected viral URI I would give short course (3-5 days max)
- Maintain SpO2 >90-94% with supplemental O2 as needed
- Incentive spirometer encouraged
- Continue scheduled Tessalon Perles
- Can give a one time dose of magnesium 2g if her SOB does not improve
- Given she has nasal discharge, on 07/24 I started nasal ocean mist
- SPEP pending
- Trend serum calcium level and check ionized calcium levels
- Replete electrolytes with K>4, Mg>2
- Maintain euglycemia with goal BG >100 and <180
- DVT ppx
Pulmonary service will continue to follow along.
Total time spent today was 35 minutes for this encounter. Time includes reviewing laboratory test/imaging results, reviewing pertinent medical records, obtaining and reviewing medical history, performing an appropriate exam, ordering medications,
tests and procedures. Time also includes documentation of this encounter, coordinating patient care and communicating with other healthcare professionals. Total time does not include separately billed tests performed on this date of service.
Data:
CXR 07-23-2023:
1. Mild amount of subpleural scarring and subsegmental atelectasis in the lower lobes.
2. Mild elevation of the right hemidiaphragm.
Subjective Data
-
Date of Service:
Date of Service: July 26, 2023
Chief Complaint: Pulmonary Follow Up
Subjective:
Patient seen this early afternoon, she was laying in bed in no acute distress. Still having coughing spells which is frustrating her as she feels that she should be improving by now. She was short of breath overnight with wheezing which improved
with a nebulizer treatment. She currently denies any chest pain, headache, fevers or chills.
Review of Systems
General: Other (Negative unless mentioned above)
Objective Data
Data Reviewed
Vital Signs / I&O / Oxygen:
Vital Signs
Temp Pulse Resp BP Pulse Ox
98.5 F 65 18 139/80 97
07/26/23 07:25 07/26/23 07:25 07/26/23 08:28 07/26/23 07:25 07/26/23 08:28
Intake and Output
07/25/23 07/26/23 07/27/23
06:59 06:59 06:59
Intake Total 1801 / 1801 1200 / 1200
Balance 1801 / 1801 1200 / 1200
SaO2 97
Nasal Cannula flow liters per 2
minute
Physical Exam
General: Respiratory Distress (Negative), Comfortable and Chills (Negative)
HEENT: Normocephalic and Anicteric
Cardiovascular: S1-S2 and Peripheral Edema (negative)
Respiratory: Wheeze (Occasionally heard in the posterior lung jackson with expiration), Crackles (negative), Rhonchi (Negative) and Non-Labored Respirations
GI: Soft, Non Distended, Non Tender and Normal Bowel Sounds
Neurology: AO x 3 and Tremors (Negative)
Skin: Warm and Dry
Labs/Micro/Reports
Lab Data
07/24/23 05:01
07/25/23 05:39
Microbiology
07/24/23 23:19 Sputum Respiratory Culture - Final
07/24/23 23:19 Sputum Gram Stain - Final
--- NOTE | 2023-07-26 15:18 | W.PN.HOSP.TC ---
Today's Communication/Plan
-
one more IV dose then switch to PO and discharge in am
Discussed with pt
Assessment / Plan
Assessment / Plan
63-year-old female with cough and dyspnea started 6 days ago. Despite treatment with inhalers, inhaled steroids, Z-Ld and steroid taper patient did not get better. She stated her her granddaughter was sick with URI symptoms.
On examination awake alert able to speak in sentences
Cardiovascular system S1-S2 appreciated
Chest fait wheezes on the right noted, with forced expiration
Abdomen soft and nontender
No lower extremity edema
# Acute asthma exacerbation with URI and acute bronchitis likely asthmatic bronchitis
COVID-19 testing negative and influenza negative as outpatient
Failed outpatient treatment
Chest x-ray atelectasis
Continue IV steroids today, switch to PO in am , doxycycline, Tessalon
As needed oxygen
Pulmonary consultation appreciated -patient is known to Dr. Whyte
# Slightly elevated AST and ALT-follow
Likely from hepatic steatosis from a previous ultrasound 2014
Improved
OP GI F/U
# Mild hypercalcemia- intact PTH noted
Pt needs OP W/U for Hypercalcemia
SPEP and UPEP
Pt not on any supplements
# History of allergic rhinitis-continue Zyrtec and Singulair
# Hemoglobin A1c 6.0
With steroids sugars may rise. Monitor
# History of cervical spine surgery-continue Lyrica
# Obesity per BMI criteria
# Full code
# DVT prophylaxis-Lovenox
D/W RN
Anticipated Discharge: Within 24 hours
Subjective/Interval History
-
Date of Service: July 26, 2023
Objective Data
-
Labs:
Laboratory Results
07/26/23
15:17
Sodium Pending
Potassium Pending
Chloride Pending
Carbon Dioxide Pending
BUN Pending
Creatinine Pending
Glucose Pending
Calcium Pending
Vital Signs:
Vital Signs
Temp Pulse Resp BP Pulse Ox
98.5 F 65 16 139/80 96
07/26/23 07:25 07/26/23 07:25 07/26/23 11:39 07/26/23 07:25 07/26/23 11:39
I&O
07/25/23 07/26/23 07/27/23
06:59 06:59 06:59
Intake Total 1801 / 1801 1200 / 1200
Balance 1801 / 1801 1200 / 1200
[2023-07-26 15:30] VITALS: BP 155/90
[2023-07-26 16:19] LABS: Blood Urea Nitrogen 28 mg/dl (7-17); Calcium 10.2 mg/dl (8.4-10.2); Carbon Dioxide 20 mmol/L (22-30); Chloride 105 mmol/L (98-107); Estimated Creatinine Clearance 82 ml/min; Glucose 157 mg/dl (70-99); Potassium 4.4 mmol/L (3.5-5.1); Sodium 137 mmol/L (135-145); eGFR > 60.00
[2023-07-26] MEDS: OCEAN, SALINE MIST 50 SPRAYS NASAL (17:15)
[2023-07-26] MEDS: LOVENOX SC (17:15)
[2023-07-26 20:50] VITALS: BP 114/79
[2023-07-26] MEDS: SINGULAIR 10 MG PO (21:33)
[2023-07-26] MEDS: LYRICA 50 MG PO (21:33)
[2023-07-26 23:00] VITALS: BP 133/77
[2023-07-27] MEDS: VENTOLIN NEBULES 2.5 MG INH ×4 (02:25→15:27)
[2023-07-27] MEDS: ROBITUSSIN DM 5 ML PO ×2 (02:43→10:12)
[2023-07-27 07:25] LABS: Ionized Calcium 1.22 mMOL/L (1.15-1.33)
[2023-07-27] MEDS: SYMBICORT 160/4.5 MCG INHALER 2 PUFF INH (07:37)
[2023-07-27] MEDS: SPIRIVA RESPIMAT 2.5 MCG 2 PUFF INH (07:37)
[2023-07-27 07:40] VITALS: BP 136/83
[2023-07-27] MEDS: OCEAN, SALINE MIST 2 SPRAYS NASAL ×2 (10:06→13:02)
[2023-07-27] MEDS: PRED FORTE 1% EYE DROPS 1 DROP RIGHT EYE ×2 (10:06→13:02)
[2023-07-27] MEDS: VIBRAMYCIN 100 MG PO (10:07)
[2023-07-27] MEDS: TESSALON PERLES 200 MG PO ×2 (10:07→16:11)
[2023-07-27] MEDS: THERAGRAN 1 TABLET PO (10:07)
[2023-07-27] MEDS: REFRESH EYE DROPS (PF) 1 DROPS RIGHT EYE ×2 (10:07→13:01)
[2023-07-27] MEDS: MIRALAX 17 GRAMS PO (10:07)
[2023-07-27] MEDS: REFRESH EYE DROPS (PF) RIGHT EYE (10:07)
[2023-07-27] MEDS: ZYRTEC 10 MG PO (10:08)
[2023-07-27] MEDS: DELTASONE 50 MG PO (10:08)
--- NOTE | 2023-07-27 10:20 | W.PN.PUL3 ---
Today's Communication / Plan
-
Continue systemic steroids
Today - start prednisone taper beginning at 50 mg and reduce by 10 mg every fourth day until off
Continue nasal [place] mist due to acute rhinitis symptoms with nasal congestion and green discharge
Up OOB as tolerated
Encourage incentive spirometer use
Pt being prepared for discharge home. Pulmonary service will now sign off. Please re-consult if there are any additional questions or concerns. I will arrange for outpatient follow up with our office.
Assessment
-
Assessment: 63-year-old female non-smoker with a past medical history of asthma, depression and ADD who presents with cough + SOB starting last Monday (07/19/2023). The patient had seen her PCP (Dr. Woo) recently on 07/20 with cough and
congestion despite being treated with a Medrol Dosepak 2 days prior for suspected viral URI. Pt was not getting relief despite using nebulized albuterol - patient was diagnosed with acute sinusitis and was told to stop the Medrol, and a prednisone
taper was given starting at 60 mg X 2 days, dropping down to 40 mg for another 3 days, etc., and Breztri samples were given to the patient as well as Rogerio Worley + a Z-pack. In the ER she was afebrile to 98.3 �F, pulse rate 97, breathing at 22
breaths/min, BP 130/93 and saturating 90% on room air. Labs showed leukocytosis to 11.8, slightly elevated LFTs with AST 39, ALT 51, and CXR showed no pneumonia or heart failure (mildly elevated right hemidiaphragm with mild subpleural scarring
and subsegmental atelectasis in the lower lobes). Patient given DuoNebs in the ER and Solu-Medrol and admitted to the hospitalist service. Inhalers were continued as well as systemic steroids, and doxycycline. Pulmonary service now consulted for
additional recommendations.
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
Impression:
#Acute asthmatic exacerbation likely due to viral URI
#Mild persistent asthma with moderate-severe exacerbation with coughing paroxysms (at homes takes albuterol MDI 1-2x daily; the Sharondatri was only a sample her PCP started on her last week)
#Slightly elevated LFTs
#Hypercalcemia - improved and iPTH is normal
#History of ADD
#Depression
#Hx of COVID-19 (September 2021)
Plan:
- Continue systemic steroids and wean as tolerated � on 07/25 she was on Decadron 2 mg IV q8hr (equivalent to prednisone 40mg) weaned from 4mg IV q8hr --> today please transition to Prednisone taper, beginning at 50mg and reduce by 10mg every 4th day
until off
- Continue with inhalers with Symbicort 160mcg and Spiriva Respimat 2.5mcg with nebulized albuterol QID and q4hr prn albuterol
- Continue Doxycycline but with suspected viral URI I would give short course (3-5 days max)
- Maintain SpO2 >90-94% with supplemental O2 as needed
- Incentive spirometer encouraged
- Continue scheduled Tessalon Perles
- Can give a one time dose of magnesium 2g if her SOB does not improve
- Given she has nasal discharge, on 07/24 I started nasal ocean mist
- SPEP pending
- Trend serum calcium level and check ionized calcium levels
- Replete electrolytes with K>4, Mg>2
- Maintain euglycemia with goal BG >100 and <180
- DVT ppx
Pt being prepared for discharge home. Pulmonary service will now sign off. Thank you for allowing us to be involved in the care of this patient. Please re-consult if there are any additional questions or concerns. I will arrange for outpatient
follow up with our office.
Total time spent today was 25 minutes for this encounter. Time includes reviewing laboratory test/imaging results, reviewing pertinent medical records, obtaining and reviewing medical history, performing an appropriate exam, ordering medications,
tests and procedures. Time also includes documentation of this encounter, coordinating patient care and communicating with other healthcare professionals. Total time does not include separately billed tests performed on this date of service.
Data:
CXR 07-23-2023:
1. Mild amount of subpleural scarring and subsegmental atelectasis in the lower lobes.
2. Mild elevation of the right hemidiaphragm.
Subjective Data
-
Date of Service:
Date of Service: July 27, 2023
Chief Complaint: Pulmonary Follow Up
Subjective:
Seen today. Doing well. Being discharged home today. No chest pain, GOMEZ, abd pain, N/V/f/c.
Review of Systems
General: Other (negative unless mentioned above)
Objective Data
Data Reviewed
Vital Signs / I&O / Oxygen:
Vital Signs
Temp Pulse Resp BP Pulse Ox
98.4 F 89 16 149/90 95
07/27/23 15:20 07/27/23 15:20 07/27/23 15:30 07/27/23 15:20 07/27/23 15:45
Intake and Output
07/26/23 07/27/23 07/28/23
06:59 06:59 06:59
Intake Total 1200 / 1200 960 / 960 1800 / 1800
Balance 1200 / 1200 960 / 960 1800 / 1800
SaO2 95
Nasal Cannula flow liters per 2
minute
Physical Exam
General: Respiratory Distress (Negative), Comfortable and Chills (Negative)
HEENT: Normocephalic and Anicteric
Cardiovascular: S1-S2 and Peripheral Edema (negative)
Respiratory: Wheeze (Occasionally heard in the posterior lung jackson with expiration), Crackles (negative), Rhonchi (Negative) and Non-Labored Respirations
GI: Soft, Non Distended, Non Tender and Normal Bowel Sounds
Neurology: AO x 3 and Tremors (Negative)
Skin: Warm and Dry
Labs/Micro/Reports
Lab Data
07/24/23 05:01
07/26/23 15:57
Microbiology
07/24/23 23:19 Sputum Respiratory Culture - Final
07/24/23 23:19 Sputum Gram Stain - Final
[2023-07-27 15:20] VITALS: BP 149/90
--- NOTE | 2023-07-27 15:45 | PTCARENOTE ---
Pt AAO X3, DUNNE well, ambulatory in room/to BR; andrea well. VSS. On room air- pulse ox 95%, pt with (+) SCHWARZ but denies SOB. Occ harsh cough- small amts green mucus. Abd large, soft, andrea PO well. Voiding in BR without difficulty. Resting in bed at
present, no c/o. Will continue to monitor.
--- NOTE | 2023-07-27 16:04 | W.PN.HOSP.TC ---
Today's Communication/Plan
-
Discharge
Assessment / Plan
Assessment / Plan
63-year-old female with cough and dyspnea started 6 days ago. Despite treatment with inhalers, inhaled steroids, Z-Ld and steroid taper patient did not get better. She stated her her granddaughter was sick with URI symptoms.
Cardiovascular system S1-S2 appreciated
Chest no wheeze
Abdomen soft and nontender
No lower extremity edema
# Acute asthma exacerbation with URI and acute bronchitis likely asthmatic bronchitis
COVID-19 testing negative and influenza negative as outpatient
Failed outpatient treatment
Chest x-ray atelectasis
steroids PO in am , doxycycline, Tessalon
Pulmonary consultation appreciated -patient is known to Dr. Whyte
# Slightly elevated AST and ALT-follow
Likely from hepatic steatosis from a previous ultrasound 2014
Improved
OP GI F/U
# Mild hypercalcemia- intact PTH noted
Pt needs OP W/U for Hypercalcemia
SPEP and UPEP
Even though her medications list does not have calcium supplements she admits to taking a lot of supplements as outpatient
Advised to stop it and follow-up with her PCP for repeat calcium levels.
Her ionized calcium and total calcium level today is normal.
Patient is aware that test above are pending and she will follow-up with Dr. Keith Lincoln.
# History of allergic rhinitis-continue Zyrtec and Singulair
# Hemoglobin A1c 6.0
# History of cervical spine surgery-continue Lyrica
# Obesity per BMI criteria
# Full code
# DVT prophylaxis-Lovenox
D/W RN
All F/U Discussed
Discharge time 36 min
Anticipated Discharge: Today
Subjective/Interval History
-
Date of Service: July 27, 2023
Objective Data
-
Vital Signs:
Vital Signs
Temp Pulse Resp BP Pulse Ox
98.4 F 89 16 149/90 95
07/27/23 15:20 07/27/23 15:20 07/27/23 15:30 07/27/23 15:20 07/27/23 15:45
I&O
07/26/23 07/27/23 07/28/23
06:59 06:59 06:59
Intake Total 1200 / 1200 960 / 960 840 / 840
Balance 1200 / 1200 960 / 960 840 / 840
--- NOTE | 2023-07-27 16:17 | W.DS.TRANS ---
Addendum entered and electronically signed by Pascale Myles MD 07/27/23 16:45:
Dictation- [id number]
Original Note:
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
-
Discharge Instructions:
Discharge Diagnosis/Procedures Asthma exacerbation, bronchitis, elevated
calcium, fatty liver
Diet As tolerated
Activity As tolerated
Driving Restrictions As prior to admission
Blood Work Repeat calcium levels as outpatient as discussed
. Hemoglobin A1c in 3 months. Liver function
test in 3 months.
Instructions: Asthma, Adult (DC)
Acute Bronchitis, Adult (DC)
Stand-Alone Forms:
Changes to Home Medications: Yes
Discharge Medications:
DC Medications w/original date entered in [facility])
cetirizine 10 mg tablet 10 mg PO DAILY Allergies 11/01/20
pregabalin 50 mg capsule 50 mg PO HS Mental Health/Anxiety 11/01/20
budesonide 160 mcg-glycopyr 9 mcg-formot 4.8 mcg/actuation HFA inhaler (Breztri Aerosphere) 2 inh inhalation R BID Lung/Breathing Issues 07/23/23
carboxymethylcellulose 0.5 %-glycerin 0.9 % eye drops (Refresh Optive) 1 drp RIGHT EYE QID DRY EYES 07/23/23
docusate sodium 100 mg capsule (Colace) 100 mg PO BIDPRN PRN constipation 07/23/23
montelukast 10 mg tablet (Singulair) 10 mg PO HS ASTHMA 07/23/23
prednisolone acetate (PF) 1 % eye drops,suspension 1 drp RIGHT EYE QID Anti-Inflammatory 07/23/23
therapeutic multivitamin 1 tab PO DAILY Supplement 07/23/23
albuterol sulfate 2.5 mg/3 mL (0.083 %) solution for nebulization 2.5 mg (3 mL) inhalation R Q4HPRN PRN SOB/WHEEZING #180 mL 07/27/23
benzonatate 100 mg capsule 200 mg (2 x 100 mg) PO TID Cough #30 caps 07/27/23
budesonide-formoterol HFA 160 mcg-4.5 mcg/actuation aerosol inhaler (Symbicort) 2 puff inhalation R BID Lung/breathing issues #10.2 grams 07/27/23
doxycycline hyclate 100 mg capsule 100 mg PO BID Infection #3 caps 07/27/23
prednisone 10 mg tablet See Rx Instructions .Route .COMPLEX Lung/breathing issues #40 tabs 07/27/23
Home Medication Changes
new
Doxycycline hyclate 100 mg capsule 100 mg PO BID Infection #3 caps 07/27/23
prednisone 10 mg tablet See Rx Instructions .Route .COMPLEX Lung/breathing issues #40 tabs 07/27/23
Pending Results: Yes
Additional Pending Results:
SPEP,UPEP
[2023-07-30 10:28] LABS: Albumin 4.29 g/dL (3.75-5.01); Alpha 1 Globulin 0.25 g/dL (0.19-0.46); Alpha 2 Globulin 0.58 g/dL (0.48-1.05); SPEP IFE Reflex Not Done; Total Protein-Electrophoresis 6.7 g/dL (6.3-8.2)
[2023-07-31 22:03] LABS: 24 Hour Urine Total Volume Random mL; Urine Collection Length Random hr; Urine Free Lambda Light Chains 2.22 mg/L (0.00-3.79)
== END 2023-07-27 17:37 | disposition home or self-care (01) | DRG 202 ==
LOC: 4 EAST ACU 08:54
PROVIDERS: Physician Assistant; ADMITTING PHYSICIAN Internal Medicine; ATTENDING PHYSICIAN Hospitalist; CONSULT PHYSICIAN Internal Medicine Critical Care Medicine; EMERGENCY PHYSICIAN Emergency Medicine; FAMILY PHYSICIAN Family Medicine
DX: J45.31 Mild persistent asthma with (acute) exacerbation (principal); J98.11 Atelectasis; J01.90 Acute sinusitis, unspecified; E11.9 Type 2 diabetes mellitus without complications; E88.819 Insulin resistance, unspecified; F41.9 Anxiety disorder, unspecified; F90.9 Attention-deficit hyperactivity disorder, unspecified type; J30.9 Allergic rhinitis, unspecified; R06.89 Other abnormalities of breathing; F32.A Depression, unspecified; E83.52 Hypercalcemia; K76.0 Fatty (change of) liver, not elsewhere classified; J34.2 Deviated nasal septum; E66.9 Obesity, unspecified; J34.3 Hypertrophy of nasal turbinates; J20.9 Acute bronchitis, unspecified; Z79.52 Long term (current) use of systemic steroids; Z63.4 Disappearance and death of family member; Z90.49 Acquired absence of other specified parts of digestive tract; Z98.1 Arthrodesis status; Z88.6 Allergy status to analgesic agent; Z88.1 Allergy status to other antibiotic agents; Z88.5 Allergy status to narcotic agent; Z88.0 Allergy status to penicillin; Z88.8 Allergy status to other drugs, medicaments and biological substances; Z82.5 Family history of asthma and other chronic lower respiratory diseases; Z86.16 Personal history of COVID-19; Z68.31 Body mass index [BMI] 31.0-31.9, adult
CPT/HCPCS: 71046; 80048; 80053; 80076; 82330; 83036; 83521; 83970; 84155; 84156; 84165; 85025; 86335; 87070; 87205; 94640; 99285

== ENCOUNTER 2023-09-07 12:18 | Emergency (ER) | payer OTHER, SELFPAY ==
[2023-09-07 12:25] VITALS: BP 129/95
--- NOTE | 2023-09-07 12:37 | ED.GENMED ---
History of Present Illness
<Mickie Shaw PA-C - Last Filed: 09/07/23 17:51>
General
Chief Complaint: Eye Problems
Source: patient
Exam Limitations: none
Time Seen by Provider: 09/07/23 12:37
Nursing documentation reviewed up to this point in time: agreed with
History of Present Illness
History of Present Illness:
63-year-old female with a past medical history of asthma, diabetes, cataracts presenting emergency department today with concerns of decreased vision in her left eye, left eye redness and pain. Patient states that a month ago, patient had cataract
surgery done and when they went to crush up the cataracts, multiple pieces fell in the back of the eye and they were not able to vacuum patient all the pieces. Patient reports that 2 days later, she started to have a lot of eye pain and so they
went back in to do surgery. Patient then started to develop increased pressure since then and she states that this is caused by the complications from the surgery. Patient's eye will become very red and then she will get increased pressure and
have to get injections. She uses prednisone eyedrops as well as eyedrops to keep her pressures down. She started to have symptoms today again of eye pain and decreased visual acuity however patient states has never been this bad before. Patient
describes that in her left eye, it is like she is looking through wax paper. Patient states that she cannot see anything but she can see color and light. Patient able to see out of her right eye without any issues. Patient denies any trauma to
the eye other than the surgery she had last month. Patient called her opthalmology office who advised her to report to [facility] ophthalmology emergency department or to follow-up with her doctor in the office tomorrow.
Past History
<Mickie Shaw PA-C - Last Filed: 09/07/23 17:51>
Past History
ED Past Medical History: Asthma, NIDDM (Insulin resistance ), Psychiatric (ADHD, anxiety ) and Other (Seasonal allergies )
ED Past Surgical History: Appendectomy, Orthopedic (Bilateral knee surgeries ) and Other (Umbilical hernia repair )
Social History
Tobacco: Non-smoker
Alcohol: None
Living: with family
Employment: Employed
Review of Systems
<Mickie Shaw PA-C - Last Filed: 09/07/23 17:51>
Review of Systems
All Other Systems: ROS reviewed and negative except as documented in HPI and ROS
Phy Exam
<Mickie Shaw PA-C - Last Filed: 09/07/23 17:51>
Physical Exam
Physical Exam:
General: Patient is well appearing and in no acute distress; non-toxic
Skin: Warm and dry, no rashes or lesions
Head: Normocephalic, atraumatic
Eyes: Left sclera is injected. Right sclera is clear. Sclera non-icteric. EOMs intact. PERRLA. Right eye Visual Acquity 20/20, Left eye visual acuity decreased in left eye unable to read any lines of the Snellen chart. Fluorescein staining reveals
a left eye corneal abrasion which patient states is chronic and she always has that. Left intraocular pressure is 11 mmHg, right intraocular pressure is 10 mmHg.
Cardiac: Regular rate
Pulm: Normal respiratory effort
Neuro: CN II-XII intact, no focal neurologic deficits.
Psychiatric: Appropriate mood and affect.
Course
<Mickie Shaw PA-C - Last Filed: 09/07/23 17:51>
Orders/Labs/Results
Orders:
Orders
09/07/23 14:35
Tetracaine HCl [Tetracaine 0.5% Ophthalmic Solution] 1 drop .ROUTE .[facility]-MED ONE
09/07/23 17:33
Add On- LAB Urgent
Tests Added?: urine and serum osmolality
Vital Signs
Initial and Last Documented VS:
Initial Vital Signs
Temp Pulse Resp BP Pulse Ox
97.8 F 96 16 129/95 98
09/07/23 12:25 09/07/23 12:25 09/07/23 12:25 09/07/23 12:25 09/07/23 12:25
Last Documented Vital Signs
Temp Pulse Resp BP Pulse Ox
97.8 F 96 16 130/82 98
09/07/23 12:25 09/07/23 12:25 09/07/23 12:25 09/07/23 13:26 09/07/23 12:25
<Joycelyn Gay MD - Last Filed: 09/07/23 14:37>
Orders/Labs/Results
Orders:
Orders
09/07/23 14:35
Tetracaine HCl [Tetracaine 0.5% Ophthalmic Solution] 1 drop .ROUTE .[facility]
09/07/23 17:33
Add On- LAB Urgent
Tests Added?: urine and serum osmolality
Vital Signs
Initial and Last Documented VS:
Initial Vital Signs
Temp Pulse Resp BP Pulse Ox
97.8 F 96 16 129/95 98
09/07/23 12:25 09/07/23 12:25 09/07/23 12:25 09/07/23 12:25 09/07/23 12:25
Last Documented Vital Signs
Temp Pulse Resp BP Pulse Ox
97.8 F 96 16 130/82 98
09/07/23 12:25 09/07/23 12:25 09/07/23 12:25 09/07/23 13:26 09/07/23 12:25
<Mickie Shaw PA-C - Last Filed: 09/07/23 17:51>
MDM/Problems Addressed
Differential Diagnosis Includes:
ddx include acute angle closure glaucoma, macular edema, CRAO, CRVO, retinal detachment, iritis, corneal abrasion
MDM/Problems Addressed:
Vision loss, painful red eye:
63-year-old female with a past medical history of asthma, diabetes, cataracts presenting emergency department today with concerns of decreased vision in her left eye, left eye redness and pain. Patient has had on and off red eye pain and redness
ever since her complication with her cataract surgery in August. Patient's left eye is red, painful, and she cannot see anything out of the left eye other than light and color---she states that it feels like she is looking through wax paper. I called
the senior talent acquisition specialist physician from patient's optho office who spoke to the patient earlier and advised her to report to the [facility] eye ER or to see her in the office tomorrow. Considering the holiday, we do not have ophthalmology senior talent acquisition specialist so we called [facility] for transfer and advised her to immediately report to the [facility] emergency department.
Chronic conditions affecting care:
diabetes, asthma, ADHD, cataract
Acute Exacerbation and/or Progression of Chronic Illness:
diabetes, asthma, ADHD, cataract
<Mickie Shaw PA-C - Last Filed: 09/07/23 17:51>
*Pulse Oximetry
Patient hypoxic: no
*Critical Care Note
Total Time (30-74mins, 75-104mins- exclusive of procedures): Not Applicable
Data Reviewed
Review of Other/Old Records Reveals: Records (reviewed discharge summary from 07/27/23)
Source: patient and records
<Joycelyn Gay MD - Last Filed: 09/07/23 14:37>
Update Note
Update Note:
2:15 PM I called and spoke to [facility] emergency department and gave the patient's name and date of . I spoke to an pipefitter there who agreed that the patient should be evaluated and encouraged that the patient go by private vehicle to
[facility] emergency department. Patient is very agreeable to this
ED Attending Note
<Mickie Shaw PA-C - Last Filed: 09/07/23 17:51>
-
Portions of this chart may have been created with voice recognition software.� Occasional wrong word or��sound alike� substitutions may have occurred due to the inherent limitations of voice recognition software.
<Joycelyn Gay MD - Last Filed: 09/07/23 14:37>
ED Attending Note
Patient seen and examined by attending physician: Yes
I performed the substantive portion of visit, reviewed & personally made and approve the management plan that is documented in note by myself or TITI.: Yes
ED Attending Note:
Patient appears well nontoxic on exam. Patient's left eye appears injected and is tender to palpation. However, it does not feel firm to the touch. I used fluorescein stain on the patient's left eye and there was uptake in the area of the cornea,
which the patient states is chronic. Patient's ocular pressure in left eye is normal at 11
Discharge Plan
Departure
Patient Disposition: Other
Date of Disposition: 09/07/23
Time of Disposition: 14:32
Patient with high blood pressure during this ER visit?: Yes
Condition: Fair
Discharge Problem:
Decreased visual acuity, Acute eye pain
Instructions: BLOOD PRESSURE
Prescriptions:
No Action
cetirizine 10 MG tablet
10 mg PO DAILY
pregabalin 50 MG capsule
50 mg PO HS
montelukast [Singulair] 10 mg Tablet
10 mg PO HS
therapeutic multivitamin Tablet
1 tab PO DAILY
docusate sodium [Colace] 100 mg Capsule
100 mg PO BIDPRN PRN (Reason: constipation)
Refresh Optive 0.5-0.9 % Drops
1 drp RIGHT EYE QID
prednisolone acetate (PF) 1 % Drops,Suspension
1 drp RIGHT EYE QID
Breztri Aerosphere 160-9-4.8 mcg/actuation Hfa Aerosol Inhaler
2 inh INHALATION R BID
Patient Comments:
patient has free samples
budesonide-formoterol [Symbicort] 160-4.5 mcg/actuation Hfa Aerosol Inhaler
2 puff inhalation R BID Qty: 10.2 0RF
albuterol sulfate 2.5 mg /3 mL (0.083 %) Solution For Nebulization
2.5 mg inhalation R Q4HPRN PRN (Reason: SOB/WHEEZING) Qty: 180 0RF
doxycycline hyclate 100 mg Capsule
100 mg PO BID Qty: 3 0RF
benzonatate 100 mg Capsule
200 mg PO TID Qty: 30 0RF
prednisone 10 mg Tablet
See Rx Instructions .ROUTE .COMPLEX Qty: 40 0RF
Rx Instructions:
Take By Mouth:
50 mg daily x2 days, 40 mg daily x3 days,
30 mg daily x3 days, 20 mg daily x3 days,
10 mg daily x3 days
Referrals:
Keith Lincoln MD [Family Provider] -
Activity Restrictions/Additional Instructions:
Please proceed directly to [facility] Eye Emergency Department.
Please follow up with your pipefitter tomorrow.
Interventions
Interventions:
*Risk Screen - Suicide Last Done: 09/07/23 12:25
*General Assessment Last Done: 09/07/23 12:25
*Neglect/Abuse Screening Last Done: 09/07/23 12:25
*Nursing Disposition Last Done: 09/07/23 14:46
Discharge Date and Time
Discharge Date/Time: 09/07/23 14:48
Print Language: LAO
[2023-09-07 13:26] VITALS: BP 130/82
--- NOTE | 2023-09-07 13:56 | EDRN ---
Increasing pressure pain lt eye.
== END 2023-09-07 14:48 | disposition other institution (70) ==
LOC: EMR 12:18
PROVIDERS: EMERGENCY PHYSICIAN Emergency Medicine; FAMILY PHYSICIAN Family Medicine
DX: H54.62 Unqualified visual loss, left eye, normal vision right eye (principal); H57.12 Ocular pain, left eye; J45.909 Unspecified asthma, uncomplicated; E11.36 Type 2 diabetes mellitus with diabetic cataract; F90.9 Attention-deficit hyperactivity disorder, unspecified type; R03.0 Elevated blood-pressure reading, without diagnosis of hypertension
CPT/HCPCS: 99283

== ENCOUNTER → 2024-02-07 13:56 | Outpatient (REF) | payer OTHER, SELFPAY | LOC: WDC 13:56 | PROVIDERS: ATTENDING PHYSICIAN Nurse Practitioner Adult Health; FAMILY PHYSICIAN Family Medicine | DX: Z12.31 Encounter for screening mammogram for malignant neoplasm of breast (principal); Z80.3 Family history of malignant neoplasm of breast | CPT/HCPCS: 77063; 77067 ==

== ENCOUNTER → 2024-07-14 08:39 | Outpatient (REF) | payer OTHER, SELFPAY | LOC: PAVMRI 08:39 | PROVIDERS: ATTENDING PHYSICIAN Orthopaedic Surgery Sports Medicine; FAMILY PHYSICIAN Family Medicine | DX: M17.11 Unilateral primary osteoarthritis, right knee (principal) | CPT/HCPCS: 73721 ==

== ENCOUNTER → 2025-01-04 06:55 | Outpatient (REF) | payer OTHER, SELFPAY | LOC: MRI 3T 06:55 | PROVIDERS: ATTENDING PHYSICIAN Orthopaedic Surgery Hand Surgery; FAMILY PHYSICIAN Family Medicine | DX: M25.532 Pain in left wrist (principal); M18.12 Unilateral primary osteoarthritis of first carpometacarpal joint, left hand | CPT/HCPCS: 73221 ==

== ENCOUNTER → 2025-02-13 10:47 | Outpatient (REF) | payer OTHER, SELFPAY | LOC: PAVMRI 10:47 | PROVIDERS: ATTENDING PHYSICIAN Internal Medicine; FAMILY PHYSICIAN Family Medicine | DX: H47.093 Other disorders of optic nerve, not elsewhere classified, bilateral (principal) | CPT/HCPCS: 70543; A9575 ==

== ENCOUNTER → 2025-02-17 13:55 | Outpatient (REF) | payer OTHER, SELFPAY | LOC: WDC 13:55 | PROVIDERS: ATTENDING PHYSICIAN Nurse Practitioner Adult Health; FAMILY PHYSICIAN Family Medicine | DX: Z12.31 Encounter for screening mammogram for malignant neoplasm of breast (principal); Z80.3 Family history of malignant neoplasm of breast | CPT/HCPCS: 77063; 77067 ==

== ENCOUNTER → 2025-02-28 10:08 | Outpatient (REF) | payer OTHER, SELFPAY | LOC: WDC 10:08 | PROVIDERS: ATTENDING PHYSICIAN Nurse Practitioner Adult Health; FAMILY PHYSICIAN Family Medicine | DX: R92.8 Other abnormal and inconclusive findings on diagnostic imaging of breast (principal) | CPT/HCPCS: 76642 ==